=== PATIENT | female | born 1970 | race Caucasian/White ===

== ENCOUNTER → 2021-08-03 10:01 | Outpatient (BNVA) | payer OTHER, SELFPAY | PROVIDERS: Family Provider Registered Nurse; Visit Provider Nurse Practitioner | DX: Z79.899 Other long term (current) drug therapy (principal) | CPT/HCPCS: 83036 ==

== ENCOUNTER → 2023-02-26 15:38 | Outpatient (BNVA) | payer OTHER, SELFPAY | PROVIDERS: Family Provider Registered Nurse; PCP Nurse Practitioner; Visit Provider Nurse Practitioner Family | DX: R32 Unspecified urinary incontinence (principal); M25.50 Pain in unspecified joint; E55.9 Vitamin D deficiency, unspecified; Z79.899 Other long term (current) drug therapy; Z13.6 Encounter for screening for cardiovascular disorders | CPT/HCPCS: 80053; 80061; 81003; 82306; 83036; 84443; 85025; 85651; 86038 ==

== ENCOUNTER → 2023-03-01 14:47 | Outpatient (BNVA) | payer OTHER, SELFPAY | PROVIDERS: Family Provider Registered Nurse; PCP Nurse Practitioner; Visit Provider Nurse Practitioner Family | DX: R32 Unspecified urinary incontinence (principal); N39.42 Incontinence without sensory awareness | CPT/HCPCS: 81003 ==

== ENCOUNTER → 2023-04-02 11:11 | Outpatient (BNVA) | payer OTHER, SELFPAY | PROVIDERS: Family Provider Registered Nurse; PCP Nurse Practitioner; Visit Provider Nurse Practitioner Family | DX: R32 Unspecified urinary incontinence (principal) | CPT/HCPCS: 81003; 87086 ==